=== PATIENT | male | born 1960 | race Caucasian/White ===

== ENCOUNTER 2017-12-07 10:12 | Day surgery (SDC) | payer BC ==
[~2017-12-07] VITALS: Ht 170.2 cm; Wt 70.9 kg
[~2017-12-07 10:12] MED LIST: CLON-364 PO; LEVO25TA4 PO
[2017-12-07] MEDS ORDERED: LACTATED RINGERS 1,000 ML IV SCH (10:45)
[2017-12-07 10:46] VITALS: BP 128/71
[2017-12-07] MEDS ORDERED: MIDAZOLAM 1 MG/ML, 2ML ONE (11:50)
[2017-12-07] MEDS ORDERED: FENTANYL PF 100 MCG/2ML ONE ×2 (11:51→14:10)
[2017-12-07] MEDS ORDERED: BUPIVACAINE/PF 0.25% ONE (11:57)
[2017-12-07] MEDS ORDERED: EPINEPHRINE 1 MG/ML, 1ML ONE (11:57)
[2017-12-07] MEDS ORDERED: OXYcodone IR 5MG TABLET PO ONE (12:00)
[2017-12-07] MEDS ORDERED: ONDANSETRON ODT 8 MG PO ONE (12:00)
[2017-12-07] MEDS ORDERED: ACETAMINOPHEN 500 MG TABLET PO ONE (12:00)
[2017-12-07] MEDS ORDERED: FAMOTIDINE 20 MG TABLET PO ONE (12:00)
[2017-12-07] MEDS ORDERED: GABAPENTIN 300 MG CAPSULE PO ONE (12:00)
[2017-12-07] MEDS ORDERED: SCOPOLAMINE PATCH, 1.5MG PATCH.TD72 TD ONE (12:00)
[2017-12-07] MEDS ORDERED: KETOROLAC 30 MG/1 ML ONE ×2 (12:05)
[2017-12-07] MEDS ORDERED: ROCURONIUM 10 MG/ML,10ML ONE ×2 (12:05)
[2017-12-07] MEDS ORDERED: EPHEDRINE 50 MG/ML, 1ML IVPush PRN (13:00)
[2017-12-07] MEDS ORDERED: OXYcodone 5 MG/5 ML ORAL.SOL UDC PO PRN (13:00)
[2017-12-07] MEDS ORDERED: MIDAZOLAM 1 MG/ML, 2ML IV PRN (13:00)
[2017-12-07] MEDS ORDERED: ALBUTEROL SULFATE 2.5 MG/3 ML NPPB PRN (13:00)
[2017-12-07] MEDS ORDERED: HYDROcodone/APAP 7.5-325MG/15ML UDC PO PRN (13:00)
[2017-12-07] MEDS ORDERED: PROMETHAZINE 25 MG/ML, 1ML IV PRN (13:00)
[2017-12-07] MEDS ORDERED: hydrALAzine 20 MG/ML, 1ML IV PRN (13:00)
[2017-12-07] MEDS ORDERED: MEPERIDINE/PF 25MG/0.5ML IVPush PRN (13:00)
[2017-12-07] MEDS ORDERED: HYDROmorphone 1 MG/ML, 1ML IV PRN (13:00)
[2017-12-07] MEDS ORDERED: LABETALOL 5MG/ML, 20ML IV PRN (13:00)
[2017-12-07] MEDS ORDERED: ONDANSETRON ODT 8 MG PO PRN (13:00)
[2017-12-07] MEDS ORDERED: GLYCOPYRROLATE 0.2MG/1ML, 5ML ONE (13:51)
[2017-12-07] MEDS ORDERED: CEFAZOLIN 1,000 MG ONE (13:51)
[2017-12-07] MEDS ORDERED: SUCCINYLCHOLINE 20 MG/ML, 10ML ONE (13:51)
[2017-12-07] MEDS ORDERED: DEXAMETHASONE 4 MG/ML, 1ML ONE (13:51)
[2017-12-07] MEDS ORDERED: PROPOFOL 10 MG/ML, 20ML ONE (13:51)
[2017-12-07] MEDS ORDERED: NEOSTIGMINE 1 MG/ML, 10ML ONE (13:51)
[2017-12-07] MEDS ORDERED: OXYcodone 5 MG/5 ML ORAL.SOL UDC ONE (14:10)
[2017-12-07] MEDS: FENTANYL PF 100 MCG/2ML IV PRN ×2 (14:23→14:45)
== END 2017-12-07 16:37 ==
LOC: OUT 10:12
PROVIDERS: ATTEND Surgery
DX: K40.20 Bilateral inguinal hernia, without obstruction or gangrene, not specified as recurrent (principal); E03.9 Hypothyroidism, unspecified; F41.9 Anxiety disorder, unspecified; Z98.890 Other specified postprocedural states
CPT/HCPCS: 49650; C1781; J0171; J0330; J0690; J1100; J1885; J2250; J2704; J2710; J3010; J3490; J7120; Q0162; S2900